=== PATIENT | male | born 1975 | race American Indian/Alaskan Native ===

== ENCOUNTER 2018-12-14 13:22 | Emergency (ER) | payer OTHER ==
--- NOTE | 2018-12-14 14:04 | Event Note ---
ED Screening Note Date of service: 12/14/18 Time: 14:03 ED Screening Note: 43 y/o male comes in for chest and back pain started this morning. This initial assessment/diagnostic orders/clinical plan/treatment(s) is/are subject to change based on patients health status, clinical progression and re- assessment by fellow clinical providers in the ED. Further treatment and workup at subsequent clinical providers discretion. Patient/guardian urged not to elope from the ED as their condition may be serious if not clinically assessed and managed. Initial orders include:
[2018-12-14 14:53] LABS: Basophils % (Auto) 0.6 % (0.0-1.8); Eosinophils # (Auto) 0.1 K/mm3 (0.0-0.4); Eosinophils % (Auto) 1.6 % (0.0-4.3); Hematocrit 40.1 % (35.5-45.6); Hemoglobin 13.7 gm/dl (11.8-15.2); Lymphocytes # (Auto) 1.7 K/mm3 (1.2-5.4); Lymphocytes % (Auto) 21.1 % (13.4-35.0); Mean Corpuscular HGB Conc 34 % (32-34); Mean Corpuscular Volume 93 fl (84-94); Monocytes # (Auto) 0.5 K/mm3 (0.0-0.8); Monocytes % (Auto) 6.4 % (0.0-7.3); Platelet Count 214 K/mm3 (140-440); Red Blood Count 4.32 M/mm3 (3.65-5.03); Red Cell Distribution Width 13.3 % (13.2-15.2)
[2018-12-14 14:59] LABS: Alanine Aminotransferase 17 units/L (7-56); Albumin 4.7 g/dL (3.9-5); BUN/Creatinine Ratio 13; Blood Urea Nitrogen 15 mg/dL (9-20); Calcium 9.6 mg/dL (8.4-10.2); Hemolysis Index 1
[2018-12-14] MEDS ORDERED: NORMODYNE PO ONE (15:00)
[2018-12-14] MEDS ORDERED: K-DUR PO ONE (15:03)
[2018-12-14 15:07] LABS: INR 1.03 (0.87-1.13)
--- NOTE | 2018-12-14 16:02 | XRay Report ---
CHEST 2 VIEWS INDICATION: Chest Pain. COMPARISON: none FINDINGS: Support devices: None. Heart: Within normal limits. Tortuous thoracic aorta for a 43-year-old male Lungs: No acute air space or interstitial disease. Pleura: No significant pleural effusion. No pneumothorax. Additional findings: None. IMPRESSION: 1. No acute findings. Signer Name: Silverio Robison MD Signed: 12/14/2018 3:58 PM Workstation Name: [id number]
[2018-12-14] MEDS ORDERED: BABY ASPIRIN PO ONE (16:06)
[2018-12-14] MEDS ORDERED: MORPHINE IV ONE (16:06)
--- NOTE | 2018-12-14 16:15 | Emergency Department Report ---
ED Chest Pain HPI - General Chief Complaint: Chest Pain Stated Complaint: CHEST/BACK PAIN Time Seen by Provider: 12/14/18 14:02 Source: patient Mode of arrival: Ambulatory Limitations: No Limitations - History of Present Illness Initial Comments: 43-year-old AA male presents to the emergency department with complaint of some midsternal chest pain that radiates towards his back has been going on since this morning. It is associated with some shortness of breath. He denies any fever, nausea, vomiting or diaphoresis. Pain is about 6-7 out of 10 in i ntensity. No known aggravating or alleviating factors. He did not take anything for her symptoms prior to arrival today. He is a tobacco smoker and occasionally will smoke marijuana. No recent travel or sick contacts at home. He does not have a primary care physician. The patient presents with extremely elevated blood pressure. He does have a history of hypertension but has not been taking his medication for many months as he did not like the way it feels when he takes no meds. He does drink some caffeinated products. Severity scale (0 -10): 6 - Related Data Allergies Allergy/AdvReac Type Severity Reaction Status Date / Time Penicillins Allergy Unknown Verified 12/14/18 13:40 Heart Score - HEART Score History: Moderately suspicious EKG: Significant ST-depression Age: < 45 Risk factors: 1-2 risk factors Troponin: < normal limit HEART Score: 4 - Critical Actions Critical Actions: 0-3 pts:0.9-1.7%risk of adverse cardiac event.Candidate for discharge ED Review of Systems ROS: Stated complaint: CHEST/BACK PAIN Other details as noted in HPI Comment: All other systems reviewed and negative Constitutional: denies: chills, fever Eyes: denies: eye pain, vision change ENT: denies: ear pain, throat pain Respiratory: shortness of breath. denies: cough Cardiovascular: chest pain. denies: palpitations Gastrointestinal: denies: abdominal pain, vomiting Genitourinary: denies: dysuria, discharge Musculoskeletal: back pain. denies: arthralgia Skin: denies: rash, lesions Neurological: denies: headache, weakness ED Past Medical Hx - Past Medical History Hx Hypertension: Yes - Social History Smoking Status: Current Every Day Smoker Substance Use Type: Marijuana ED Physical Exam - General Limitations: No Limitations - Other Other exam information: GENERAL: The patient is well-developed well-nourished. HENT: Normocephalic. Atraumatic. Patient has moist mucous membranes. EYES: Extraocular motions are intact. NECK: Supple. Trachea is midline. CHEST/LUNGS: Clear to auscultation. There is no respiratory distress noted. HEART/CARDIOVASCULAR: Regular. There is no tachycardia. There is no murmur. ABDOMEN: Abdomen is soft, nontender. Patient has normal bowel sounds. There is no abdominal distention. SKIN: Skin is warm and dry. NEURO: The patient is awake, alert, and oriented. The patient is cooperative. The patient has no focal neurologic deficits. The patient has normal speech. MUSCULOSKELETAL: There is no tenderness or deformity. There is no limitation range of motion. There is no evidence of acute injury. ED Course Vital Signs 12/14/18 12/14/18 12/14/18 14:04 14:42 14:44 Temperature 98.5 F Pulse Rate 68 59 L 63 Respiratory 18 18 Rate Blood Pressure 229/131 Blood Pressure 211/123 [Left] O2 Sat by Pulse 97 98 Oximetry 12/14/18 12/14/18 12/14/18 15:15 15:45 15:47 Temperature Pulse Rate 68 68 Respiratory 18 18 Rate Blood Pressure Blood Pressure 228/133 [Left] O2 Sat by Pulse 99 Oximetry 12/14/18 12/14/18 12/14/18 16:54 16:57 17:26 Temperature Pulse Rate 67 76 89 Respiratory 18 18 Rate Blood Pressure 214/127 Blood Pressure 214/127 205/115 [Left] O2 Sat by Pulse 96 97 Oximetry 12/14/18 19:35 Temperature 98.3 F Pulse Rate 98 H Respiratory 15 Rate Blood Pressure Blood Pressure 199/106 [Left] O2 Sat by Pulse 96 Oximetry - Consultations Consultation #1: As soon as the report came back showing a type B dissection of the thoracic aorta, I contacted [facility] and spoke with the cardiothoracic surgeon aircraft air conditioning mechanic, Dr. Chaudhary. He asked for an esmolol drip to be added and has accepted the patient to his service to go to the CVICU. 12/14/18 19:11 JACKELIN score - Jackelin Score Aspirin use within the Past 7 Days: (0) No 3 or more CAD Risk Factors: (0) No 2 or more Angina events in past 24 hrs: (1) Yes Known CAD with more than 50% Stenosis: (0) No Elevated Cardiac Markers: (0) No ST Deviation Greater than 0.5mm: (1) Yes ED Medical Decision Making - Lab Data Result diagrams: 12/14/18 14:10 12/14/18 14:10 - EKG Data -: EKG Interpreted by Me EKG shows normal: sinus rhythm, axis (left axis deviation), intervals (prolonged AK interval), QRS complexes (LVH), ST-T waves (T-wave inversions to the lateral and inferior leads, there is some ST depression to lateral and inferior leads) Rate: normal - EKG Data When compared to previous EKG there are: previous EKG unavailable Interpretation: other (sinus rhythm, normal rate, left axis deviation, prolonged AK interval, T-wave inversions and some ST depressions to the inferior lateral leads) - Radiology Data Radiology results: report reviewed, image reviewed interpreted by me: Chest x-ray does not show any acute process. There are no pleural effusions, obvious pneumonia and there is no pneumothorax. CTA CHEST WITH IV CONTRAST INDICATION / CLINICAL INFORMATION: CP, elevated dimer. TECHNIQUE: Axial CT images were obtained through the chest after injection of IV contrast. 3 plane MIP and/or 3D reconstructions were produced. All CT scans at this location are performed using CT dose reduction for ALARA by means of automated exposure control. COMPARISON: None available. FINDINGS: PULMONARY ARTERIES: No pulmonary emboli. THORACIC AORTA: However, attention is directed to the dissection of the thoracic aorta with its origin at the level of the left subclavian vein which does not appear to be involved. The dissection extends to just above the origin of the celiac axis. Moderate compression of the true lumen is present. HEART: No significant abnormality. CORONARY ARTERIES: No significant calcification. PLEURA: No pleural effusion. No pneumothorax. LYMPH NODES: No significant adenopathy. LUNGS: No acute air space or interstitial disease. ADDITIONAL FINDINGS: None. UPPER ABDOMEN: No acute findings. Small hiatal hernia is present SKELETAL STRUCTURES: No significant osseous abnormality. IMPRESSION: 1. Type B aortic dissection as described in the body of report 2. No evidence of pulmonary emboli 3. Small hiatal hernia 4. No evidence of acute cardiopulmonary disease - Medical Decision Making This patient initially presented with the complaint of some acute chest pain with radiation towards his back. He also presented with extremely elevated blood pressure with some medication noncompliance. Patient was given a dose of labetalol for triage. He was then given a 20 mg dose of IV hydralazine, a dose of IV morphine, but the patient only had a slight improvement in his discomfort and almost no change in his blood pressure. Chest x-ray did not show any acute process including no pneumonia, pneumothorax, widened mediastinum, focal consolidation, pleural effusions, or any other acute process. His labs were mostly unremarkable including a negative troponin, but the patient did have a s everely elevated d-dimer level. For this reason, a CT angiography of the chest was completed that came back showing a type B aortic dissection. The patient was placed on a Cardene drip for tight blood pressure control. As per the consultation section, I spoke with cardiothoracic surgery at [facility] who accepted the patient to their service and also asked for an esmolol drip to be added. After receiving an accepting physician, the patient was transported to [facility] to the CVICU [facility]. The patient was seen leaving the emergency department in a stable condition. - Differential Diagnosis IA, PE, dissection, pneumonia Critical Care Time: Yes Critical care time in (mins) excluding proc time.: 35 Critical care attestation.: If time is entered above; I have spent that time in minutes in the direct care of this critically ill patient, excluding procedure time. Critical care time was spent on this patient and doing his initial evaluation, multiple re-evaluations, ordering and interpretation of labs and imaging, discussion with the radiologist, discussion with the accepting cardiothoracic surgeon, ordering and titration of antihypertensive medications and drips. Critical Care Time: 35 minutes ED Disposition Clinical Impression: Aortic dissection, thoracic, Acute chest pain, Hypertensive emergency Disposition: [id number] OP ADMIT IP TO THIS HOSP Is pt being admited?: Yes Condition: Serious Referrals: LENNY LANGE MD [Primary Care Provider] - 3-5 Days Time of Disposition: 22:04
[2018-12-14] MEDS ORDERED: APRESOLINE IV ONE (16:54)
[2018-12-14] MEDS ORDERED: CARDENE 50 MG in NACL 0.9% 250ML 230 ML IV SCH (19:00)
--- NOTE | 2018-12-14 19:02 | Cat Scan Report ---
CTA CHEST WITH IV CONTRAST INDICATION / CLINICAL INFORMATION: CP, elevated dimer. TECHNIQUE: Axial CT images were obtained through the chest after injection of IV contrast. 3 plane MIP and/or 3D reconstructions were produced. All CT scans at this location are performed using CT dose reduction f or ALARA by means of automated exposure control. COMPARISON: None available. FINDINGS: PULMONARY ARTERIES: No pulmonary emboli. THORACIC AORTA: However, attention is directed to the dissection of the thoracic aorta with its origi n at the level of the left subclavian vein which does not appear to be involved. The dissection exten ds to just above the origin of the celiac axis. Moderate compression of the true lumen is present. HEART: No significant abnormality. CORONARY ARTERIES: No significant calcification. PLEURA: No pleural effusion. No pneumothorax. LYMPH NODES: No significant adenopathy. LUNGS: No acute air space or interstitial disease. ADDITIONAL FINDINGS: None. UPPER ABDOMEN: No acute findings. Small hiatal hernia is present SKELETAL STRUCTURES: No significant osseous abnormality. IMPRESSION: 1. Type B aortic dissection as described in the body of report 2. No evidence of pulmonary emboli 3. Small hiatal hernia 4. No evidence of acute cardiopulmonary disease CRITICAL FINDINGS Time of Discovery 1750 Hours The Clinical Service Was Notified of These Findings at [address] Palacios was notified of these findings personally by Dr. Robison Signer Name: Silverio Robison MD Signed: 12/14/2018 6:57 PM Workstation Name: [id number]
[2018-12-14] MEDS ORDERED: BREVIBLOC DRIP 2.5GM/250ML 2.5 GM/250 ML BAG IV ONE (19:07)
[2018-12-14 19:59] VITALS: BP 199/106
== END 2018-12-14 19:35 | disposition admitted as inpatient to this hospital (09) ==
LOC: ED 13:22
DX: I16.1 Hypertensive emergency (principal); I71.01 Dissection of thoracic aorta; K44.9 Diaphragmatic hernia without obstruction or gangrene; I10 Essential (primary) hypertension; F17.200 Nicotine dependence, unspecified, uncomplicated; F12.10 Cannabis abuse, uncomplicated; Z88.0 Allergy status to penicillin
CPT/HCPCS: 36415; 71046; 71275; 80053; 83690; 84484; 85025; 85379; 85610; 93005; 93010; 96365; 96375; 99291; J0360; J2270; J7050; Q9967